=== PATIENT | male | born 1950 | race Caucasian/White ===

== ENCOUNTER → 2016-05-12 | Outpatient (CLI) | payer OTHER, MEDICARE ==
[~2016-05-12] MED LIST: IOPAMIDOL (ISOVUE-300) 100 ML BTL IV ONE
--- NOTE | 2016-05-12 17:26 | CT ---
CT Abdomen and Pelvis (Without and With Contrast) CT Urogram 1516 hours History: Previous left nephrectomy and ureterectomy for urothelial cancer. Assess for recurrent disea se (C 65.9). Technique: Spiral images were obtained through the abdomen and pelvis without contrast for renal ston e evaluation. 95 mL of Isovue-300 IV contrast were administered and spiral images were obtained throu gh the abdomen. After a 12-minute delay, spiral imaging was obtained through the abdomen and pelvis. Images were reconstructed in multiple planes for CT urogram imaging. An AP scanogram extruding press adjuster image was also obtained over the abdomen and pelvis after axial imaging was acquired. Dose reduction techniques were utilized. Comparison the prior CT study of July 25, 2014. Findings: On the noncontrast images, there is no evidence of calculus projected over the right kidney or along the expected path of the right ureter. No bladder calculus is seen, as well. Postoperative changes are seen in the left renal fossa from previous left nephrectomy. With IV contrast administration, there is good uptake and excretion of contrast by the right kidney. No filling defects are seen within the collecting system on the right side with normal contour to the renal collecting structures, as well as the right ureter. The bladder has a normal contour. No bladd er lesion is seen. Liver: There is a stable 9 mm presumed cyst in the dome of the liver anteriorly. No new liver lesion is seen. Spleen: Normal. Gallbladder and Bile Ducts: Normal. Pancreas: Normal. Adrenals: Normal. Abdominal Aorta: No aneurysm. There are scattered atherosclerotic calcifications associated with the abdominal aorta Pelvic structures: Normal in appearance. No pelvic masses or lymphadenopathy. Bladder: Normal . Appendix: Normal. Bowel Loops: There is mild constipation of the ascending and transverse colons. There are no signifi cantly dilated loops of bowel. There is uncomplicated diverticulosis of the sigmoid colon.. No bowel obstruction, ascites, or significant retroperitoneal lymphadenopathy. Skeletal system: Left total hip replacement is noted. Old healed fractures are seen associated with the left acetabulum as well as inferior pubic ramus on the left. Degenerative disk disease is present involving the lumbar spine most prominent at L4-L5 with associated facet hypertrophy, degenerative d isk disease, and spinal stenosis Impression: 1. No evidence for recurrent urothelial mass on the right or evidence of renal mass. 2. Postoperative changes from previous left nephrectomy. 3. Stable subcentimeter cyst dome of the liver. 4. Mild constipation. 5. Degenerative changes lower lumbar spine with findings most prominent at L4-L5.
== END ==
LOC: FIMAGING 14:46
PROVIDERS: ATTEND Specialist
DX: K76.89 Other specified diseases of liver (principal); K59.00 Constipation, unspecified; M51.36 Other intervertebral disc degeneration, lumbar region
CPT/HCPCS: 74178; Q9967

== ENCOUNTER 2016-11-28 09:42 | Observation (INO) | payer OTHER, MEDICARE ==
--- NOTE | 2016-11-28 09:56 | CPEKG ---
Heart Rate: 57 RR Interval: 1053 P-R Interval: 172 QRSD Interval: 92 QT Interval: 420 QTC Interval: 409 P [place]: 40 QRS [place]: 68 T Wave [place]: 75 EKG Severity - BORDERLINE ECG - EKG Impression: SINUS RHYTHM EKG Impression: BORDERLINE INFERIOR Q WAVES Electronically Signed By: Javi Perez 30-Nov-2016 16:19:56
--- NOTE | 2016-11-28 10:09 | EDPHY ---
HPI/HX/ROS/PE/MDM Narrative: CHIEF COMPLAINT: Chest pain HISTORY OF PRESENT ILLNESS: The patient is a 66-year-old male with history of NV and cardiac stent in LAD who presents to the ED with chest pain. The patient developed usubsternal "esophageal pain" around 3:30 a.m. He felt diaphoretic and hot. He attributed his discomfort to GERD and went back to sleep. His pain has remained constant since onset and is unrelieved with Tums. He spoke to his protocol manager, Dr. Walker, who told him to come to the ED. The patient drank alcohol last night before bed. He takes Aspirin daily, though he has not taken it this morning. He denies fever, chills, shortness of breath, palpitations, vomiting, diarrhea, urinary complaints, headache, lightheadedness. No recent changes in medications. Last stress test was several years ago, in preparation for surgical removal of kidney due to renal cell carcinoma. REVIEW OF SYSTEMS: Aside from elements discussed in the HPI, a comprehensive 10-point review of systems was reviewed and is negative. PAST MEDICAL HISTORY: Hypertension, NV with cardiac stent x1, GERD, Nephrectomy , Renal cell carcinoma SOCIAL HISTORY: Alcohol use. Former smoker. VITAL SIGNS: Reviewed by me GENERAL: Well-developed, well-nourished, resting comfortably in no respiratory distress. HEENT: Atraumatic. Eyes: No icterus, no injection. Mouth: moist mucous membranes. No erythema or lesions. Neck: supple with no adenopathy. LUNGS: Clear to auscultation bilaterally, no wheezes, rhonchi or rales. No tenderness on chest wall. CARDIAC: Regular rate and rhythm, no rubs, murmurs or gallops. ABDOMEN: Soft, nontender, nondistended, bowel sounds normal. BACK: No CVA tenderness. EXTREMITIES: No trauma. No edema. Range of motion is normal throughout. NEURO: Alert and oriented, grossly nonfocal. SKIN: Warm and dry, no rash. PSYCHIATRIC: Normal mentation, no agitation. Portions of this note were transcribed by a medical record assistant. I personally performed a history, physical exam, medical decision making, and confirmed accuracy of information the transcribed note. ED Course: On arrival patient reports he has no pain. He describes brief, less than 10 second, episodes of sharp pain as well as an underlying vague, "heartburn" type pain. Patient with cardiac history and GERD presents with chest pain that started last night. Patient believes his pain is related to GERD. He received 325mg Aspirin PO. I will check lab work including Troponin and D-dimer. Chest x-ray ordered. Patient is hypertensive in the ED. 12-LEAD EKG: Please see the full report in [facility]. My interpretation: Inferior Q waves. Non-ischemic. Lab work is unremarkable. Troponin is negative. D-Dimer is normal. 11:35 a.m.: I spoke to the hospitalist team, Dr. Macdonald accepts the patient for admission. 12:50 p.m.: Patient's blood pressure increased to 202/102 , patient began to complain of recurrent chest discomfort and nausea. Sharp chest discomfort was less than 15 seconds, patient's is unable to clearly describe the vague, residual chest discomfort. I spoke to his protocol manager Dr. Walker. Repeat EKG remains nonischemic. Patient received Norvasc for blood pressure, nitroglycerin for his chest discomfort as well as his blood pressure, and a GI cocktail. He was admitted to the hospital. MDM: After history and physical examination, the differential for chest pain was considered, including but not limited to, myocardial ischemia, acute coronary syndrome, pulmonary embolus, gastroentestinal source, chest wall pain, pleural inflammation and pulmonary infectious causes. - Data Points Imaging Results: Imaging Impressions Chest X-Ray 11/28/16 10:07 Impression: Hypoventilatory chest with no acute findings. Imaging: I viewed and interpreted images myself Laboratory Results: Laboratory Results 11/28/16 10:02 11/28/16 10:02 11/28/16 11/28/16 11/28/16 10:02 10:02 10:02 WBC 6.08 10^3/uL 10^3/uL (3.80-9.50) RBC 5.02 10^6/uL 10^6/uL (4.40-6.38) Hgb 15.6 g/dL g/dL (13.7-17.5) Hct 44.0 % % (40.0-51.0) MCV 87.6 fL fL (81.5-99.8) MCH 31.1 pg pg (27.9-34.1) MCHC 35.5 g/dL g/dL (32.4-36.7) RDW 14.7 % % (11.5-15.2) Plt Count 327 10^3/uL 10^3/uL (150-400) MPV 9.9 fL fL (8.7-11.7) Neut % (Auto) 71.6 % % (39.3-74.2) Lymph % (Auto) 21.4 % % (15.0-45.0) [place] % (Auto) 4.8 % % (4.5-13.0) Eos % (Auto) 1.3 % % (0.6-7.6) Baso % (Auto) 0.7 % % (0.3-1.7) Nucleat RBC Rel Count 0.0 % % (0.0-0.2) Absolute Neuts (auto) 4.36 10^3/uL 10^3/uL (1.70-6.50) Absolute Lymphs (auto) 1.30 10^3/uL 10^3/uL (1.00-3.00) Absolute Monos (auto) 0.29 10^3/uL L 10^3/uL (0.30-0.80) Absolute Eos (auto) 0.08 10^3/uL 10^3/uL (0.03-0.40) Absolute Basos (auto) 0.04 10^3/uL 10^3/uL (0.02-0.10) Absolute Nucleated RBC 0.00 10^3/uL 10^3/uL (0-0.01) Immature Gran % 0.2 % % (0.0-1.1) Immature Gran # 0.01 10^3/uL 10^3/uL (0.00-0.10) D-Dimer 0.27 ug/mLFEU ug/mLFEU (0.00-0.50) Sodium 143 mEq/L mEq/L (134-144) Potassium 4.0 mEq/L mEq/L (3.5-5.2) Chloride 104 mEq/L mEq/L (97-110) Carbon Dioxide 26 mEq/l mEq/l (22-31) Anion Gap 13 mEq/L mEq/L (8-16) BUN 21 mg/dL mg/dL (7-23) Creatinine 1.0 mg/dL mg/dL (0.7-1.3) Estimated GFR > 60 Glucose 116 mg/dL H mg/dL (70-100) Calcium 10.6 mg/dL H mg/dL (8.5-10.4) Total Bilirubin 0.7 mg/dL mg/dL (0.1-1.4) Conjugated Bilirubin 0.3 mg/dL mg/dL (0.0-0.5) Unconjugated Bilirubin 0.4 mg/dL mg/dL (0.0-1.1) AST 28 IU/L IU/L (17-59) ALT 43 IU/L IU/L (21-72) Alkaline Phosphatase 63 IU/L IU/L (38-126) Troponin I < 0.012 ng/mL ng/mL (0.000-0.034) Total Protein 7.2 g/dL g/dL (6.3-8.2) Albumin 4.5 g/dL g/dL (3.5-5.0) Lipase 276 IU/L IU/L (23-300) Medications Given: Discontinued Medications Aspirin (Aspirin) 324 mg PO EDNOW ONE Stop: 11/28/16 10:14 Last Admin: 11/28/16 10:35 Dose: 324 mg General Time Seen by Provider: 11/28/16 09:50 Initial Vital Signs: Initial Vital Signs Temperature (C) 36.9 C 11/28/16 09:44 Heart Rate 73 11/28/16 09:44 Respiratory Rate 14 11/28/16 09:44 Blood Pressure 166/99 H 11/28/16 09:44 O2 Sat (%) 94 11/28/16 09:44 O2 Delivery Mode Room Air O2 (L/minute) 2 Allergies/Adverse Reactions: Penicillins Allergy (Unknown, Verified 10/18/12 15:47) Unknown ENVIRONMENTAL Allergy (Mild, Uncoded 11/24/12 15:13) NASAL CONGESTION Home Medications: Medication Instructions Recorded Aspirin [Aspirin 325 mg (*)] 325 mg PO DAILY 11/17/12 Atorvastatin Calcium [Lipitor 80 80 mg PO HS 11/17/12 mg] Glucosam/Chondr/Collagn/Hyalur 1 each PO DAILY 11/17/12 [Glucosamine & Chondroitin Cap] Latanoprost 0.005% [Xalatan 0.005% 1 drops EACHEYE HS 08/08/13 (*)] Multivitamins [Multivitamin (*)] 1 each PO DAILY 11/17/12 Aflibercept [Eylea] 2 mg IO AD 12/15/13 Herbals/Supplements -Info Only 1 ea PO DAILY 12/15/13 C/E/Zn/Cu/OM3/DHA/EPA/LUT/ZEAX 1 each PO BID 11/28/16 [Preservision Areds 2 Softgel] Cetirizine [ZyrTEC 10 mg (*)] 10 mg PO DAILY 11/28/16 Fish Oil/Dha/Epa [Fish Oil 1,200 1 each PO DAILY 11/28/16 mg Fish Oil] Lisinopril [Zestril 20 mg (*)] 20 mg PO HS 11/28/16 amLODIPine BESYLATE [Norvasc 5 mg 5 mg PO HS 11/28/16 (*)] Metoprolol Tartrate [Lopressor 25 12.5 mg PO BID #60 tab 11/29/16 mg (*)] Nitroglycerin [Nitrostat 0.4 mg 0.4 mg SL PRN PRN #30 btl 11/29/16 (*)] Prasugrel HCl [Effient 10mg (*)] 10 mg PO DAILY #30 tab 11/29/16 Departure - Departure Disposition: [facility] Inpatient Acute Clinical Impression: Chest pain Qualifiers: Chest pain type: unspecified Qualified Code(s): R07.9 - Chest pain, unspecified Condition: Fair Report Scribed for: Gaby Emery Report Scribed by: Lindy Serna Date of Report: 11/28/16 Time of Report: 10:10
[2016-11-28] MEDS ORDERED: ASPIRIN 81 MG CHEWABLE TAB PO ONE (10:13)
[2016-11-28 10:22] LABS: % IMMATURE GRANULYOCYTES 0.2 % (0.0-1.1); ABSOLUTE IMMATURE GRANULOCYTES 0.01 10^3/uL (0.00-0.10); ADD DIFF? NO; ADD MORPH? NO; ADD SCAN? NO; ATYPICAL LYMPHOCYTE FLAG 0 (0-99); FRAGMENT RBC FLAG 0 (0-99); HEMOGLOBIN 15.6 g/dL (13.7-17.5); LEFT SHIFT FLG 0 (0-99); LIPEMIA HEMOLYSIS FLAG 90 (0-99); MEAN CELL HEMOGLOBIN 31.1 pg (27.9-34.1); MEAN CELL HEMOGLOBIN CONCENTR. 35.5 g/dL (32.4-36.7); MEAN CELL VOLUME 87.6 fL (81.5-99.8); MEAN PLATELET VOLUME 9.9 fL (8.7-11.7); PLATELET CLUMPS FLAG 0 (0-99); PLATELET COUNT 327 10^3/uL (150-400); RED BLOOD CELL COUNT 5.02 10^6/uL (4.40-6.38); RED CELL DISTRIBUTION WIDTH 14.7 % (11.5-15.2)
[2016-11-28 10:42] LABS: ALANINE AMINOTRANSFERASE 43 IU/L (21-72); ALBUMIN 4.5 g/dL (3.5-5.0); ALKALINE PHOSPHATASE 63 IU/L (38-126); ANION GAP 13 mEq/L (8-16); ASPARTATE AMINOTRANSFERASE 28 IU/L (17-59); BILIRUBIN,TOTAL 0.7 mg/dL (0.1-1.4); BILIRUBIN-CONJUGATED 0.3 mg/dL (0.0-0.5); BILIRUBIN-UNCONJUGATED 0.4 mg/dL (0.0-1.1); CALCIUM 10.6 mg/dL (8.5-10.4); CARBON DIOXIDE 26 mEq/l (22-31); CHLORIDE 104 mEq/L (97-110); GLOMERULAR FILTRATION RATE > 60; GLUCOSE 116 mg/dL (70-100); SODIUM 143 mEq/L (134-144); TOTAL PROTEIN 7.2 g/dL (6.3-8.2)
[2016-11-28 11:28] LABS: TROPONIN I < 0.012 ng/mL (0.000-0.034)
[2016-11-28] MEDS ORDERED: ONDANSETRON 4 MG/2 ML VIAL IVP PRN (12:17)
[2016-11-28] MEDS ORDERED: ONDANSETRON DISINTEGRATING 4 MG TAB PO PRN (12:17)
--- NOTE | 2016-11-28 12:31 | CPEKG ---
Heart Rate: 64 RR Interval: 938 P-R Interval: 176 QRSD Interval: 92 QT Interval: 396 QTC Interval: 409 P [place]: 48 QRS [place]: 68 T Wave [place]: 74 EKG Severity - BORDERLINE ECG - EKG Impression: INCOMPLETE ANALYSIS DUE TO MISSING DATA IN PRECORDIAL LEAD(S) EKG Impression: SINUS RHYTHM EKG Impression: BORDERLINE INFERIOR Q WAVES Electronically Signed By: Gaby Emery 28-Nov-2016 16:25:46
[2016-11-28] MEDS ORDERED: NITROGLYCERIN 0.4 MG BTL SL ONE ×2 (12:54→13:00)
[2016-11-28] MEDS ORDERED: HYOSCYAMINE SULFATE 0.125 MG TAB PO ONE (12:55)
[2016-11-28] MEDS ORDERED: MAG HYDROX/AL HYDROX/SIMETH 30 ML UDCUP PO ONE (12:55)
[2016-11-28] MEDS ORDERED: LIDOCAINE 2% VISCOUS 15 ML UDCUP PO ONE (12:55)
[2016-11-28] MEDS ORDERED: HYOSCYAMINE SULFATE 0.125 MG TAB ONE (13:06)
[2016-11-28] MEDS ORDERED: LIDOCAINE 2% VISCOUS 15 ML UDCUP ONE (13:06)
[2016-11-28] MEDS ORDERED: MAG HYDROX/AL HYDROX/SIMETH 30 ML UDCUP ONE (13:06)
[2016-11-28] MEDS ORDERED: NON-FORMULARY NEW DRUG (Aflibercept [Eylea] 2 MG) IO SCH (13:30)
[2016-11-28] MEDS ORDERED: hydrALAZINE 20 MG/ML VIAL IVP PRN (13:34)
[2016-11-28] MEDS ORDERED: diphenhydrAMINE 25 MG CAP PO ONE (14:37)
[2016-11-28] MEDS ORDERED: NITROGLYCERIN 0.4 MG BTL SL PRN (14:37)
[2016-11-28] MEDS ORDERED: TEMAZEPAM 15 MG CAP PO PRN (14:37)
[2016-11-28] MEDS ORDERED: DIAZEPAM 5 MG TAB PO ONE (14:37)
[2016-11-28] MEDS ORDERED: LIDOCAINE 1% 300 MG/30 ML SDV ONE (15:02)
[2016-11-28] MEDS ORDERED: IOPAMIDOL (ISOVUE-370) 150 ML BTL IV ONE (15:03)
[2016-11-28] MEDS ORDERED: MIDAZOLAM 2 MG/2 ML VIAL ONE ×2 (15:03→15:59)
[2016-11-28] MEDS ORDERED: fentaNYL 100 MCG/2 ML INJ ONE ×2 (15:03→16:15)
--- NOTE | 2016-11-28 15:04 | GHP ---
[f rep st] HISTORY AND PHYSICAL DATE OF ADMISSION: 11/28/2016 PRIMARY NURSING HOME SOCIAL WORKER: Андрей Prescott MD CHIEF COMPLAINT: Epigastric discomfort. HISTORY OF PRESENT ILLNESS: The patient is a 66-year-old male with a history of CAD with acute venus nary syndrome/myocardial infarction in 2011. He reports antecedent chest pain for a couple of weeks . He noted discomfort in the epigastrium without radiation. On exertion, it would not necessarily worsen, and his heart rates were under good control. He went and saw his primary care physician and his EKG was negative. He also had cardiac enzymes checked and they were elevated. He was urgently transferred to the emergency department and proceeded to left heart catheterization and was found t o have obstructive of occlusion of the proximal LAD and minimal disease affecting the rest of the co ronary anatomy. He reports being well except for having had renal cell carcinoma status post resect ion of a kidney. He also has known dyslipidemia and hypertension. He feels his hypertension is typ ically well controlled, except for in the setting of being in the hospital. He presents today after having the onset of pain at 3:00 a.m. He noted epigastric discomfort after he had gotten up to use the bathroom. This is a midsternal discomfort without radiation. It occurs in paroxysms of 10-15 seconds. At one point, it was associated with diaphoresis. He also feels th at he noted a heart rate reduction on telemetry monitoring while he was in the emergency department. He denies any associated presyncope or dyspnea. He has been exercising regularly and does not fee l limited. In fact, he went on a 50 minute bike ride yesterday and did not have any symptoms with t hat. He reports having consumed pizza, ice cream, and whiskey last night, which is not unusual for him, but typically he will not have all 3 of those in 1 day. He denies any recent illness, PND, ort hopnea, palpitations, presyncope, syncope. PAST MEDICAL HISTORY: 1. Renal cell carcinoma status post nephrectomy. 2. History of CAD. 3. History of dyslipidemia. 4. History of hypertension. PAST SURGICAL HISTORY: 1. Bladder polypectomy. 2. Nephrectomy. 3. Left total hip replacement. MEDICATIONS: Outpatient medications have been reconciled. They are listed as ibuprofen, Eylea, aml odipine, aspirin, atorvastatin, PreserVision, cetirizine, fish oil, glucosamine, latanoprost, lisino pril, multivitamin. ALLERGIES: Penicillins. REVIEW OF SYSTEMS: As per HPI. A complete 10-point review of systems was obtained. PHYSICAL EXAM: VITAL SIGNS: Blood pressure of 180/88, heart rate of 56, respirations 19, O2 satura tion 100% on 2 L, temperature of 98.4 degrees Fahrenheit. GENERAL: He is a very pleasant male in n o apparent distress. He is well developed, well nourished, alert, in no acute distress. EYES: Nor mal conjunctivae without scleral icterus. ENT: Normal dentition. Mucous membranes appear moist. LUNGS: Clear to auscultation. HEART: Regular rate and rhythm with no rubs, gallops, or murmurs. Carotids without any bruits present. SKIN: Warm and dry without edema. NEURO: There are no focal deficits detected. PSYCH: Normal mood and affect for given situation. : No Santos present. LABORATORY DATA: CBC was WBC 6.08, hemoglobin 15.6, hematocrit 44, platelet count 327. D-dimer 0.2 7. BMP was sodium 143, potassium 4, chloride 104, CO2 26, BUN 21, creatinine 1, glucose 116. AST 2 8, ALT 43, lipase 276. A 12-lead ECG personally interpreted demonstrates normal sinus rhythm at 10:00 a.m. and then normal sinus rhythm at 12:30 p.m. Chest x-ray reviewed and is unremarkable. I spoke with Dr. Emery records regarding patient's car e. IMPRESSION AND PLAN: The patient is a 66-year-old male with a history of known coronary artery dise ase. 1. Chest pain. Somewhat atypical. However, his previous symptoms at the time of his ACS, were sim ilar and will be reviewed. Plan for admission for rule out. We will also have Cardiology visit wit h patient to discuss further risk stratification. 2. Hypertension. The patient has severely elevated blood pressure at this point. He reports typic ally is well controlled. His medications have been reconciled and he will be continued on his amlod ipine and lisinopril. Given his bradycardia, we will avoid beta-blockers at this point. He has bee n given p.r.n. hydralazine for elevated blood pressures. 3. Dyslipidemia. Will plan to check lipids in this admission. LENGTH OF STAY: The patient will be admitted to observation status. Following results of testing, he may likely discharge with current secondary prevention. /[id number]/MODL
[2016-11-28] MEDS ORDERED: VERAPAMIL 5 MG/2 ML VIAL ONE (15:14)
[2016-11-28] MEDS ORDERED: HEPARIN 10,000 UNIT/10 ML MDV ONE (15:14)
[2016-11-28] MEDS ORDERED: PANTOPRAZOLE SODIUM 40 MG TAB PO SCH (15:15)
--- NOTE | 2016-11-28 15:34 | GCON ---
[f rep st] CONSULTATION DATE OF CONSULTATION: 11/28/2016 PRIMARY CHANNEL LAYER: Андрей Prescott MD CHIEF COMPLAINT: Chest pain. HISTORY OF PRESENT ILLNESS: We are asked by Madison Turner PA-C, to visit with this patient. The kina power is a 66-year-old male normally followed in the outpatient setting by my partner, Dr. Prescott . He has a history of coronary disease, status post stenting to the LAD in 2011. This was done at [facility]. Other history includes former tobacco use, hypertension and dyslipidemia. The patient was in his usual state of good health until this morning when he woke up at 3:30 with ch est burning. This was associated with general malaise and diaphoresis. Initially he thought this w as reflux as he had had an alcoholic beverage, pizza, and ice cream the night before. He tried Tums with no relief. He tried some other antacids with no relief. Because of his history, he called [employer] answering service and was instructed by me to report to the ER. In the ER, he was having ongoing chest pain, both background chest burning as well as intermittent s isabel pain. He does describe this as fairly similar to his previous anginal equivalent. He does n ot usually have problems with reflux. He has not had palpitations, heart failure symptoms, shortnes s of breath, or syncope. He has been taking all medications as prescribed. ALLERGIES: Penicillin. PAST MEDICAL HISTORY: 1. Coronary disease as detailed above. 2. Hypertension. 3. Dyslipidemia. 4. History of total hip replacement. 5. History of renal cell carcinoma, status post unilateral nephrectomy. 6. Reflux, but as mentioned, he is not on medications for this. OUTPATIENT MEDICATIONS: Aspirin, atorvastatin 80 mg daily, glucosamine and chondroitin, latanoprost eyedrops, multivitamin, herbal supplements, Zyrtec, fish oil, ibuprofen p.r.n., lisinopril 10 mg da lisandro, and amlodipine 5 mg daily. SOCIAL HISTORY: The patient is . His is at bedside. He has a remote tobacco history. He drinks about 2 alcoholic beverages nightly. FAMILY HISTORY: Not applicable to the current case. PHYSICAL EXAMINATION: VITAL SIGNS: Blood pressure at its highest in the ER was 202/102 and is curr ently 180/88, heart rate 56, oxygen saturation 100% on 2 L nasal cannula, respiratory rate is 19. H e is afebrile. GENERAL: Well-appearing older male in no acute distress. HEENT: Sclerae clear. N o jaundice. Mucous members are moist. Normocephalic, atraumatic. CARDIOVASCULAR: JVP less than 10 . Carotids equal and 2+ without bruit. Regular rate and rhythm without murmur or gallop. LUNGS: Clear to auscultation bilaterally without wheezes, rhonchi, or rales. ABDOMEN: Soft, nontender, no ndistended. Specifically, there is no epigastric tenderness. No bruits, masses, or hepatosplenomeg molly. EXTREMITIES: Warm and well perfused without cyanosis, clubbing, or edema. Intact distal puls es. NEURO: Alert and oriented x3 without gross focal neurological deficits. LABORATORY DATA: CBC is normal. D-dimer is negative. Troponin negative x1. Lipase normal. LFTs normal. Basic metabolic panel normal, except for glucose of 116 and a calcium of 10.6. EKG (reviewed by me) shows sinus rhythm with normal axis, normal intervals, and no ischemic changes. This is similar to an EKG in our office in December 2015. Chest x-ray (reviewed by me): No acute cardiopulmonary process. His last stress test was at [facility] in December 2013. This was a myocardial perfusion study, and it wa s normal. ASSESSMENT/PLAN: A 66-year-old male with known coronary disease and multiple ongoing risk factors. He presents with diaphoresis, chest burning, and significant hypertension. Despite negative 1st tr oponin and nonischemic EKG, this is very similar to his previous angina, and he is having ongoing di scomfort that has not been relieved by antacids. 1. Chest pain/coronary artery disease: Discussed options of cardiac catheterization today versus o bservation overnight, serial troponins, and consideration for stress testing in the morning. Given the patient's ongoing discomfort, especially with associated diaphoresis, and the fact that he usual ly does not get reflux, we will proceed to coronary angiogram today. The patient is willing to proc eed. Risks, benefits, and alternatives were discussed with the patient and his . Continue aspi rin and statin. He is not on a beta-merlin as an outpatient; his heart rate is on the low side. W ill follow this. 2. Hypertension: He reports that usually his blood pressure is quite well controlled. It is possi ble that he has had a recent elevation in his blood pressure which is causing some subendocardial is chemia. He will be started on his usual outpatient medications, and these will be up titrated as jim fonseca. 3. Dyslipidemia: He is on high-dose atorvastatin. Will check lipids here in the hospital as he hudson s not had this checked for quite some time. 4. Possible reflux: Start Protonix. /[id number]/MODL
[2016-11-28 16:01] LABS: CHOLESTEROL 190 mg/dL (140-220); CHOLESTEROL/HDL RATIO 2.47 RATIO (1.00-4.97); HIGH DENSITY LIPOPROTEIN 77 mg/dL (40-65); LOW DENSITY LIPOPROTEIN 100 mg/dL (80-100); NON-HIGH DENSITY LIPOPROTEIN 113 mg/dL (90-129); TRIGLYCERIDE 67 mg/dL (40-150); VERY LOW DENSITY LIPOPROTEINS 13 mg/dL (8-25)
[2016-11-28] MEDS ORDERED: METOPROLOL TARTRATE 5 MG/5 ML INJ ONE ×2 (16:01→16:27)
[2016-11-28 16:05] LABS: INR 0.94 (0.83-1.16); PROTIME(PATIENT) 12.5 SEC (12.0-15.0)
[2016-11-28] MEDS ORDERED: PRASUGREL HCL 10 MG TAB ONE (16:31)
[2016-11-28] MEDS ORDERED: PRASUGREL HCL 10 MG TAB PO ONE (16:35)
[2016-11-28] MEDS ORDERED: ATROPINE SULFATE 1 MG/10 ML SYR IVP PRN (16:35)
[2016-11-28] MEDS ORDERED: HYDROCODONE/APAP 5/325 TAB PO PRN (16:35)
[2016-11-28] MEDS ORDERED: NS 1,000 ML IV SCH (16:45)
--- NOTE | 2016-11-28 16:53 | CPEKG ---
Heart Rate: 67 RR Interval: 896 P-R Interval: 188 QRSD Interval: 88 QT Interval: 400 QTC Interval: 423 P [place]: 56 QRS [place]: 66 T Wave [place]: 81 EKG Severity - ABNORMAL ECG - EKG Impression: SINUS RHYTHM EKG Impression: PROBABLE LEFT ATRIAL ABNORMALITY EKG Impression: PROBABLE INFERIOR INFARCT, OLD EKG Impression: NONSPECIFIC T ABNORMALITIES, ANT-LAT LEADS Electronically Signed By: Javi Perez 28-Nov-2016 22:21:58
--- NOTE | 2016-11-28 17:39 | CPIP ---
[f rep st] INVASIVE CARDIAC PROCEDURE DATE OF PROCEDURE: 11/28/2016 PROCEDURE PERFORMED: Percutaneous coronary intervention of the circumflex. INDICATION FOR PROCEDURE: The patient is a 66-year-old male with a history of coronary disease and previous PCI of the LAD performed approximately 5 years ago. He presented with recurrent prolonged chest discomfort. He ruled out for an acute coronary syndrome. Based on his symptoms and previous history, the decision was made to perform cardiac catheterization. That procedure was carried out v ia the right radial approach by Dr. Radha Walker. Angiograms demonstrated diffuse moderate disease of the RCA, a patent site of prior stent placement in the left anterior descending, and an 80% focal l esion in the nof-[id number] circumflex, which jeopardize is a large bifurcating obtuse marginal branc h and the continuation of the circumflex, which terminates as a posterolateral branch. Based on the patient's clinical history and diagnostic catheterization, I was asked to perform percutaneous venus nary intervention of the circumflex. DETAILS OF PROCEDURE: The patient received 4000 units of intravenous heparin in addition to the 500 0 units that had been given at the beginning of the procedure. A 5-Citizen Of [place] LBU 3.5 guide catheter wa s advanced to the left main. An Intuition guidewire was advanced into the distal portion of circumf yared. A 4.0 x 12 mm Synergy stent was advanced into position and was deployed at 14 atmospheres of p ressure. Subsequent angiograms demonstrated 0% residual stenosis and ALEXA-3 flow. COMPLICATIONS: None. CONCLUSION: Successful percutaneous coronary intervention of the myn-da-[id number] circumflex using a s danni drug-coated stent. /[id number]/MODL
--- NOTE | 2016-11-28 17:59 | CPIP ---
[f rep st] INVASIVE CARDIAC PROCEDURE DATE OF PROCEDURE: 11/28/2016 PRIMARY CHEF SAUCIER: Андрей Prescott MD PROCEDURE: 1. Left heart catheterization. 2. Coronary angiography. INDICATIONS: Unstable angina. Patient with known coronary disease and previous LAD stenting. COMPLICATIONS: None apparent. PROCEDURE: N.p.o. status was confirmed, informed consent obtained, and time-out performed. The pat ient was brought to the catheterization laboratory and prepped and draped in a sterile fashion. Irene quate conscious sedation was achieved with Versed and fentanyl IV. 1% lidocaine was used for local anesthesia for the right wrist. Using modified Seldinger technique, a 5-Kiswahili introducer sheath wa s placed in the right basal artery. A Raymond right catheter was used for right coronary angiograp hy. JL 3.5 catheter was used for left coronary angiography. We obtained left ventricular end-diast olic pressures with the JL-4 catheter and did not perform a ventriculogram as the patient has a sing le kidney. FINDINGS: 1. The left main is normal and bifurcates into the LAD and left circumflex. 2. The LAD has a previously placed stent that is widely patent. There is a 20% narrowing just prio r to the stent in the proximal LAD. There are 2 principal diagonals that do not have significant di sease. 3. The left circumflex is a large vessel with 1 large branching obtuse marginal. In the true circu mflex there is an 80% mid vessel lesion. 4. The right coronary artery is dominant. There is diffuse minimal disease (no greater than 20%) i n this vessel. HEMODYNAMICS: Aortic pressure 149/89, LV pressure 147 with end-diastolic pressure of 11. There was no gradient upon pullback from the LV into the aorta. CONCLUSIONS: 1. Previously paced placed left anterior descending stent is patent. 2. Significant mid-circumflex lesion that is likely the explanation for the patient's acute unstabl e angina. 3. Normal left ventricular filling pressures. 4. Interventional consult with Dr. Bruce Perez. Patient currently in stable condition. Results discussed with the patient's . Copy requested to: MIRIAN PERES /[id number]/MODL
[2016-11-28] MEDS ORDERED: LISINOPRIL 20 MG TAB PO SCH (19:00)
[2016-11-28] MEDS ORDERED: amLODIPine BESYLATE 5 MG TAB PO SCH (19:00)
[2016-11-28] MEDS: PANTOPRAZOLE SODIUM 40 MG TAB PO SCH (19:23)
[2016-11-28] MEDS: PRESERVISION AREDS2 FORMULA EYE VIT 1 EACH PO SCH (20:17)
[2016-11-28] MEDS ORDERED: ATORVASTATIN CALCIUM 40 MG TAB PO SCH (21:00)
[2016-11-28] MEDS ORDERED: NON-FORMULARY NEW DRUG (Atorvastatin Calcium [Lipitor 80 Mg] 80 MG) PO SCH (21:00)
[2016-11-28] MEDS ORDERED: LATANOPROST 0.005% 2.5 ML OPHT DROPS EACHEYE SCH (21:00)
[2016-11-28] MEDS: ACETAMINOPHEN 325 MG TAB PO PRN (22:59)
--- NOTE | 2016-11-29 00:22 | CPEKG ---
Heart Rate: 81 RR Interval: 741 P-R Interval: 156 QRSD Interval: 92 QT Interval: 384 QTC Interval: 446 P [place]: 62 QRS [place]: 68 T Wave [place]: 45 EKG Severity - ABNORMAL ECG - EKG Impression: SINUS RHYTHM EKG Impression: LEFT ATRIAL ABNORMALITY Electronically Signed By: Javi Perez 30-Nov-2016 16:20:04
[2016-11-29] MEDS ORDERED: MAG HYDROX/AL HYDROX/SIMETH 30 ML UDCUP ONE (00:39)
[2016-11-29] MEDS ORDERED: MAG HYDROX/AL HYDROX/SIMETH 30 ML UDCUP PO ONE (01:15)
[2016-11-29 05:03] LABS: % IMMATURE GRANULYOCYTES 0.2 % (0.0-1.1); ABSOLUTE IMMATURE GRANULOCYTES 0.03 10^3/uL (0.00-0.10); ADD DIFF? NO; ADD MORPH? NO; ADD SCAN? NO; ATYPICAL LYMPHOCYTE FLAG 0 (0-99); FRAGMENT RBC FLAG 0 (0-99); HEMATOCRIT 40.2 % (40.0-51.0); LEFT SHIFT FLG 10 (0-99); LIPEMIA HEMOLYSIS FLAG 90 (0-99); MEAN CELL HEMOGLOBIN 30.7 pg (27.9-34.1); MEAN CELL HEMOGLOBIN CONCENTR. 34.8 g/dL (32.4-36.7); MEAN CELL VOLUME 88.2 fL (81.5-99.8); MEAN PLATELET VOLUME 9.6 fL (8.7-11.7); PLATELET CLUMPS FLAG 0 (0-99); PLATELET COUNT 296 10^3/uL (150-400); RED BLOOD CELL COUNT 4.56 10^6/uL (4.40-6.38); RED CELL DISTRIBUTION WIDTH 14.6 % (11.5-15.2)
[2016-11-29 05:17] LABS: ALANINE AMINOTRANSFERASE 37 IU/L (21-72); ALBUMIN 3.9 g/dL (3.5-5.0); ALKALINE PHOSPHATASE 55 IU/L (38-126); ANION GAP 12 mEq/L (8-16); ASPARTATE AMINOTRANSFERASE 27 IU/L (17-59); BILIRUBIN,TOTAL 0.6 mg/dL (0.1-1.4); BILIRUBIN-CONJUGATED 0.2 mg/dL (0.0-0.5); BILIRUBIN-UNCONJUGATED 0.4 mg/dL (0.0-1.1); CALCIUM 10.3 mg/dL (8.5-10.4); CARBON DIOXIDE 21 mEq/l (22-31); CHLORIDE 102 mEq/L (97-110); CHOLESTEROL 160 mg/dL (140-220); CHOLESTEROL/HDL RATIO 2.16 RATIO (1.00-4.97); GLOMERULAR FILTRATION RATE > 60; GLUCOSE 140 mg/dL (70-100); HIGH DENSITY LIPOPROTEIN 74 mg/dL (40-65); LACTATE DEHYDROGENASE 506 IU/L (313-618); LDL/HDL RATIO 1.01 RATIO (1.00-3.64); LOW DENSITY LIPOPROTEIN 75 mg/dL (80-100); MAGNESIUM 1.9 mg/dL (1.6-2.3); NON-HIGH DENSITY LIPOPROTEIN 86 mg/dL (90-129); POTASSIUM 3.8 mEq/L (3.5-5.2); SODIUM 135 mEq/L (134-144); TOTAL PROTEIN 6.5 g/dL (6.3-8.2); TRIGLYCERIDE 56 mg/dL (40-150); VERY LOW DENSITY LIPOPROTEINS 11 mg/dL (8-25)
[2016-11-29 07:29] VITALS: RESP 20; TEMP 98.3; O2SAT 92
[2016-11-29] MEDS: PRESERVISION AREDS2 FORMULA EYE VIT 1 EACH PO SCH (07:50)
[2016-11-29] MEDS: PANTOPRAZOLE SODIUM 40 MG TAB PO SCH (07:50)
[2016-11-29] MEDS: ACETAMINOPHEN 325 MG TAB PO PRN (08:14)
--- NOTE | 2016-11-29 08:54 | PDCARPN ---
Cardiology Progress Note Assessment/Plan: Assessment/plan: A 66-year-old male with a history of coronary disease status post LAD PCI in 2011. He also has hypertension and dyslipidemia. Was admitted on November 28 with chest burning concerning for angina. Given his ongoing symptoms, especially with associated diaphoresis, he was taken to the [facility]. LAD stent was patent. He was found to have an 80% stenosis of the mid circumflex. This was treated with a single drug-eluting stent by Dr. Bruce Perez. He has been started on Effient and aspirin has been continued. 1. Coronary disease: Patent LAD stent. Status post left circumflex stent implant this admission. Continue aspirin 325 mg daily and Effient. Plavix genetic testing has been sent, and he may be switched to Plavix depending on the results of this test. This can be discussed in the outpatient with his primary teacher vocational training Dr. Андрей Prescott. Continue blood pressure management and high-dose statin. Echocardiogram today to ensure he does not have wall motion abnormalities and that his ejection fraction remains normal. We did not perform left ventriculography yesterday as he has unilateral kidney. Enroll in cardiac rehab. 2. Episode of chest pain post stent: EKG was unchanged. Serial troponins have been completely normal. This may represent reflux, as the patient describes it being different than his pre stent chest discomfort. Been started on Protonix. Consider outpatient Gastroenterology evaluation. 3. Hypertension: Suboptimally controlled. Continue Norvasc and lisinopril. Add low-dose metoprolol. Possible beta-merlin side effects were reviewed with the patient. 4. Impaired fasting glucose: Check hemoglobin A1c and follow up as an outpatient about these results. 5. Dyslipidemia: His 2nd LDL this admission is 72. Continue high-dose statin. 6. Elevated white blood cell count compared with admission: This may be stress reaction. He is afebrile. He denies any viral type or other infectious symptoms. This could be repeated as an outpatient. From a cardiovascular standpoint, as long as his echocardiogram is normal he may be discharged home with close clinical follow-up. 11/29/16 08:50 Subjective: Jesse feels well this morning without chest pain or chest burning. He denies dyspnea or diaphoresis. For a period of 90 minutes in the middle the night he was having retrosternal chest burning that originated in his epigastrium and came up to the middle of his chest. Reports that this was different than the chest burning that brought him into the hospital yesterday prior to his stenting. He was given nitroglycerin with no effect, morphine which made him sleepy, and Maalox. He thinks it may have been the Maalox ultimately improved and resolved his symptoms. He denies wrist pain. Reviewed/Discussed With: family Objective: Vital Signs (8 Hrs) Temp Pulse Resp BP Pulse Ox 11/29/16 07:28 36.8 C 100 20 157/95 H 92 11/29/16 04:59 36.7 C 82 18 143/88 H 96 Intake/Output (24 Hrs) 11/28/16 11/29/16 11/30/16 05:59 05:59 05:59 Intake Total 1315 Balance 1315 Intake: Oral (ml) 675 IV Intake (ml) 640 Other: Weight 94.9 kg Intake Quantity Yes Sufficient Number of Voids Toilet 2 No acute distress. JVP less than 10. Regular rate and rhythm soft early systolic murmur at the left lower sternal border Lungs could auscultation without wheezes rhonchi or rales Abdomen soft and nontender. Specifically, no epigastric tenderness. No obvious masses or hepatosplenomegaly Extremities are warm and well perfused without cyanosis clubbing or edema Right wrist/radial arteriotomy site is clean dry and intact. No hematoma. Normal radial pulse. Normal capillary refill in the right fingers. Result Diagrams: 11/29/16 04:25 11/29/16 04:25 Cardiac Labs: Cardiac Lab Results (72 Hrs) 11/29/16 11/28/16 00:40 16:00 Troponin I 0.020 < 0.012 EKG: Serial EKGs reviewed: Normal sinus rhythm. 2nd EKG shows subtle lateral T-wave changes. No ST elevation or ST depression. Telemetry: Normal sinus Rhythm with short periods of sinus tachycardia ICD10 Worksheet Patient Problems: Problems Problem Status Onset Transitional cell carcinoma of kidney Active Chest pain Acute
[2016-11-29] MEDS ORDERED: CETIRIZINE 10 MG TAB PO SCH (09:00)
[2016-11-29] MEDS ORDERED: METOPROLOL TARTRATE 25 MG TAB PO SCH (09:00)
[2016-11-29] MEDS ORDERED: PRASUGREL HCL 10 MG TAB PO SCH (09:00)
[2016-11-29] MEDS ORDERED: MULTIVITAMINS 1 EACH TAB PO SCH (09:00)
[2016-11-29] MEDS ORDERED: NON-FORMULARY NEW DRUG (Fish Oil/Dha/Epa [Fish Oil 1,200 Mg Fish Oil] 1 EACH) PO SCH (09:00)
[2016-11-29] MEDS ORDERED: ASPIRIN 325 MG TAB PO SCH (09:00)
[2016-11-29] MEDS ORDERED: NON-FORMULARY NEW DRUG (Glucosam/Chondr/Collagn/Hyalur [Glucosamine & Chondroitin Cap] 1 E PO SCH (09:00)
--- NOTE | 2016-11-29 10:07 | ECHO ---
[id number] + + [address] : : [place] [address] : : [phone] + + Adult Echocardiographic Report + ---+ :Name: JALEESA OLIVARES BStudy Date: 11/29/2016 09:16 AM : : Hospital Admission Number: [id number] : :: 1950 Gender: Male Height: 68 in : :Age: 66 yrs Race: WH Weight: 209 l b : :Reason For Study: Stent on 11/28, CP : : BSA: 2.1 mete rs2: :History: Stent on 11/28 : + ---+ MMode/2D Measurements \T\ Calculations IVSd: 1.4 cm LVIDd: 3.9 cm FS: 32.1 % LVOT diam: 2.2 cm LVPWd: 1.3 cm LVIDs: 2.7 cm EDV(Teich): LVOT area: 66.6 ml 3.9 cm2 ESV(Teich): 26.0 ml EF(Teich): 60.9 % LVLd ap4: 7.9 cm SV(MOD-sp4): EDV(MOD-sp4): 43.0 ml 70.0 ml LVLs ap4: 6.6 cm ESV(MOD-sp4): 27.0 ml EF(MOD-sp4): 61.4 % Normal Measurement Values: + + :LVIDd (3.5-5.7cm) IVSd (0.6-1.1cm) LVPWd (0.6-1.1cm) Aortic Root (2.0-3.7cm)Left Atrium (1.5-4.0cm): :LV Vol(d) (76-115ml) LV Vol(s) (29-48ml) Ejec Fraction (50-65%)PV Rocky (0.6- 1.2m/s) TV Rocky (0.4-1.0m/s) : :MV E Rocky (0.8-1.0m/s)MV A Rocky (0.3-1.0m/s)LVOT Rocky (0.7-1.2m/s) Asc Ao Rocky ( 0.9-1.8m/s) : + + Doppler Measurements \T\ Calculations MV E max rocky: MV V2 mean: Ao mean PG: LV V1 max: 59.7 cm/sec 49.6 cm/sec 2.3 mmHg 103.7 cm/sec MV A max rocky: MV mean PG: Ao V2 mean: LV V1 max P.0 cm/sec 1.1 mmHg 72.2 cm/sec 4.3 mmHg MV E/A: 0.77 MV V2 VTI: 16.4 cmAo V2 VTI: 20.8 cm LV V1 mean PG: MV dec time: MVA(VTI): 4.6 cm2 ERIN(I,D): 3.6 cm2 2.2 mmHg 0.25 sec LV V1 mean: 68.0 cm/sec LV V1 VTI: 19.2 cm SV(LVOT): 74.6 ml PA V2 max: 94.5 cm/sec PA max P.6 mmHg Left Ventricle The left ventricle is normal in size and function. There is mild to moderate concentric left ventricular hypertrophy. Ejection Fraction = 64%. There is Doppler evidence for diastolic dysfunction. No regional wall motion abnormalities noted. Right Ventricle The right ventricle is grossly normal size. The right ventricular systolic function is normal. Atria The left atrial size is normal. Right atrial size is normal. Mitral Valve The mitral valve is normal in structure and function. There is no mitral valve stenosis. There is no mitral regurgitation noted. Tricuspid Valve The tricuspid valve is normal in structure and function. There is no tricuspid stenosis. No tricuspid regurgitation. Aortic Valve Mild Aortic Valve Calcification. There is no aortic stenosis. There is no aortic insufficiency. Pulmonic Valve The pulmonic valve is not well visualized. There is no pulmonic valvular regurgitation. Great Vessels The aortic root is normal size. Pericardium/Pleural There is no pericardial effusion. There is a fat pad seen. Conclusion A complete two-dimensional transthoracic echocardiogram was performed (2D, M-mode, Doppler and color flow Doppler). The left ventricle is normal in size and function. There is mild to moderate concentric left ventricular hypertrophy. Ejection Fraction = 64%. No regional wall motion abnormalities noted. There is Doppler evidence for Grade I diastolic dysfunction. Mild Aortic Valve Calcification No or AR No other valvular disease No prior echo in this system Final Reading Physician: Dr Radha Walker electronically signed on 11/29/2016 10:06 AM Ordering Physician: Radha Walker Performed By: Maddy Abreu
--- NOTE | 2016-11-29 10:13 | CPEKG ---
Heart Rate: 83 RR Interval: 723 P-R Interval: 168 QRSD Interval: 90 QT Interval: 372 QTC Interval: 437 P [place]: 59 QRS [place]: 58 T Wave [place]: 64 EKG Severity - BORDERLINE ECG - EKG Impression: SINUS RHYTHM EKG Impression: PROBABLE LEFT ATRIAL ABNORMALITY Electronically Signed By: Javi Perez 30-Nov-2016 16:20:15
[2016-11-29 11:11] VITALS: BP 159/89; PULSE 86
--- NOTE | 2016-11-29 12:24 | HOSPPROG ---
Hospitalist Progress Note Assessment/Plan: #CAD: PCI to LCx. Patent LAD. ASA, Effient, BB, statin. Plavix genetic testing pending #HTN: not at [facility]. Cont Lisinopril, Norvasc. Add BB #HLD: high-dose statin #H/o RCC: s/p nephrectomy #Leukocytosis: mild. Afebrile. No infectious sxs. Suspect stress-inflammation with procedure #Diet: cardiac #Disp: DC today home Subjective: no cp or sob Objective: Vital Signs Temp Pulse Resp BP Pulse Ox 36.8 C 86 20 159/89 H 92 11/29/16 07:28 11/29/16 11:10 11/29/16 07:28 11/29/16 11:10 11/29/16 07:28 Laboratory Results 11/29/16 04:25 11/29/16 04:25 11/28/16 11/29/16 11/30/16 05:59 05:59 05:59 Intake Total 1315 Balance 1315 PT 12.5 SEC (12.0-15.0) 11/28/16 Unknown INR 0.94 (0.83-1.16) 11/28/16 Unknown - Physical Exam Constitutional: no apparent distress, other (overweight) Eyes: PERRL Ears, Nose, Mouth, Throat: moist mucous membranes, hearing normal Cardiovascular: regular rate and rhythym, no murmur, rub, or gallop, No edema Respiratory: no respiratory distress, no rales or rhonchi Gastrointestinal: normoactive bowel sounds, soft, non-tender abdomen Genitourinary: no bladder fullness Skin: warm Musculoskeletal: full muscle strength, other (right radial site without hematoma. good pulse) Neurologic: AAOx3, CN II-XII Intact Psychiatric: interacting appropriately ICD10 Worksheet Patient Problems: Problems Problem Status Onset Transitional cell carcinoma of kidney Active Chest pain Acute
--- NOTE | 2016-11-29 12:47 | GDS ---
[f rep st] DISCHARGE SUMMARY DISCHARGE DIAGNOSES: 1. Coronary artery disease, with new left circumflex stent. 2. Chest pain. 3. Hypertension. 4. Dyslipidemia. 5. History of renal cell carcinoma, status post nephrectomy. PROCEDURES: Cardiac catheterization, 11/28/2016: PCI to mid distal circumflex with a single drug-e luting stent. HISTORY OF PRESENT ILLNESS: This is a 66-year-old male, history of coronary artery disease in 2011, with stent to proximal LAD. He reports doing well since that time, and compliant with medical breonna gement for his hypertension, hyperlipidemia. He presented yesterday after onset of chest pain at 3 in the morning. It was epigastric, and without radiation. It occurred in episodes of 10-15 seconds. He also noted diaphoresis and that hi s heart was bradycardic. He denies any shortness of breath. He went on a 50 minute bike ride yeste rday without any issues. HOSPITAL COURSE BY PROBLEM: 1. Acute chest pain: The patient underwent cardiac catheterization, which demonstrated occlusion i n left circumflex. PCI with drug-eluting stent. He will be treated with full-dose aspirin. Effien t beta-merlin. Genetic testing for Plavix is pending. LAD stent was patent. He will follow up wi th his primary interior design consultant, Dr. Prescott as far as treatment of Plavix in the future. Echocardiogr am showed EF of 64%. No wall motion abnormalities and diastolic dysfunction. He will start cardiac rehab. 2. Hypertension: Continue Norvasc, lisinopril, and add low-dose metoprolol. 3. Hyperlipidemia: Continue high-dose statin. 4. Mild leukocytosis: No infectious symptoms, is afebrile, suspect this is stress inflammation in setting of acute illness. 5. Impaired glucose: Glucose greater than 120 here. A1c is pending. He can follow up with his PC P. DISPOSITION: Patient is stable for discharge. NEW MEDICATIONS: 1. Effient. 2. Metoprolol 12.5 mg b.i.d. 3. Nitroglycerin. FOLLOWUP: Dr. Prescott. LABS PENDING: Plavix genetic testing. /[id number]/MODL
[2016-11-30 02:27] LABS: HEMOGLOBIN A1C 5.3 % (4.0-6.0)
[2016-12-02 17:31] LABS: 2C19S INTERPRETATION See Comments
== END 2016-11-29 13:17 | disposition home or self-care (01) ==
LOC: F2W 13:43
PROVIDERS: ADMIT Internal Medicine; ATTEND Internal Medicine
DX: I25.10 Atherosclerotic heart disease of native coronary artery without angina pectoris (principal); R07.9 Chest pain, unspecified; I10 Essential (primary) hypertension; E78.5 Hyperlipidemia, unspecified; Z90.5 Acquired absence of kidney; Z85.528 Personal history of other malignant neoplasm of kidney
CPT/HCPCS: 71020; 92928; 93005; 93306; 93458; C1769; C1874; C1887; C9600; G0378; J0360; J1200; J1644; J2250; J2405; J3010; Q9967; 81225-90

== ENCOUNTER → 2017-04-27 | Outpatient (CLI) | payer OTHER, MEDICARE ==
[~2017-04-27] MED LIST changes: -IOPAMIDOL (ISOVUE-300) 100 ML BTL IV ONE; +IOPAMIDOL (ISOVUE-300) 100 ML BTL ONE
== END ==
LOC: FIMAGING 10:51
PROVIDERS: ATTEND Specialist
DX: Z08 Encounter for follow-up examination after completed treatment for malignant neoplasm (principal); Z85.528 Personal history of other malignant neoplasm of kidney; Z90.5 Acquired absence of kidney
CPT/HCPCS: 74178; Q9967